=== PATIENT | male | born 1945 | race Caucasian/White ===

== ENCOUNTER 2016-08-29 17:24 | Emergency (ER) | payer MEDICARE ==
--- NOTE | 2016-08-29 18:29 | Emergency Department Record ---
History of Present Illness - General Chief Complaint: Fall Injury Stated Complaint: FALL 1 WEEK AGO/RIB PAIN Time Seen by Provider: 08/29/16 18:06 Source: Patient, RN notes reviewed Mode of Arrival: Ambulatory - History of Present Illness Initial Comments: from a kneeling position one week ago and he still has left rib pain. No dyspnea and no abdo cherrie pain Complaint: Fall Onset/Timin -: Week(s) Fall From: Standing When Fall Occurred: # Days [employer] Fall Witnessed: No Place Fall Occurred: Home Loss of Consciousness: None Prolonged Down Time?: No Symptoms Prior to Fall: None Location: Chest Severity: Moderate Severity scale (1-10): 8 Quality: Sharp, Stabbing - Jennifer Coma Scale Eye Response: (4) Open spontaneously Motor Response: (6) Obeys commands Verbal Response: (5) Oriented Ada Total: 15 - Related Data Home Medications Medication Instructions Recorded Confirmed Last Taken Alpha Lipoic Acid 50 mg PO DAILY 01/08/16 01/08/16 08/29/16 Aspirin, Regular 81 mg PO DAILY 01/08/16 01/08/16 08/29/16 Atorvastatin Calcium [Lipitor] 10 mg PO DAILY 01/08/16 01/08/16 08/29/16 Cholecalciferol (Vitamin D3) 2,000 unit PO DAILY 01/08/16 01/08/16 08/29/16 [Vitamin D3] Losartan Potassium [Cozaar] 25 mg PO DAILY 01/08/16 01/08/16 08/29/16 Metformin HCl [Metformin HCl ER] 1,000 mg PO BID 01/08/16 01/08/16 08/29/16 Ubidecarenone [Co Q-10] 100 mg PO DAILY 01/08/16 01/08/16 08/29/16 Omeprazole [Prilosec] 20 mg PO DAILY 08/29/16 08/29/16 08/29/16 Previous Rx's Medication Instructions Recorded Epinephrine [Epipen] 0.3 mg IM ASDIR PRN #3 syr 01/08/16 Hydrocodone/Acetaminophen [Outing 1 tab PO Q6H PRN #20 tab 08/29/16 5mg/325mg] Allergies Allergy/AdvReac Type Severity Reaction Status Date / Time Penicillins AdvReac RASH Verified 08/29/16 18:04 Travel Screening - Travel/Exposure Within Last 30 Days Have you traveled within the last 30 days?: No - Travel/Exposure Within Last Year Have you traveled outside the [place] in the last year?: No - Additonal Travel Details Have you been exposed to anyone with a communicable illness?: No - Travel Symptoms Symptom Screening: None Review of Systems Reviewed: No additional complaints except as noted below Constitutional: Reports: As per HPI. Denies: Chills, Fever, Malaise, Night sweats, Weakness, Weight change Eyes: Reports: As per HPI. Denies: Eye discharge, Eye pain, Photophobia, Vision change ENT: Reports: As per HPI. Denies: Congestion, Dental pain, Ear pain, Epistaxis , Hearing loss, Throat pain Respiratory: Reports: As per HPI. Denies: Cough, Dyspnea, Hemoptysis, Stridor, Wheezes Cardiovascular: Reports: As per HPI. Denies: Arrhythmia, Chest pain, Dyspnea on exertion, Edema, Murmurs, Orthopnea, Palpitations, Paroxysmal nocturnal dyspnea, Rheumatic Fever, Syncope Endocrine: Reports: As per HPI. Denies: Fatigue, Heat or cold intolerance, Polydipsia, Polyuria Gastrointestinal: Reports: As per HPI. Denies: Abdominal pain, Constipation, Diarrhea, Hematemesis, Hematochezia, Melena, Nausea, Vomiting Genitourinary: Reports: As per HPI. Denies: Dysuria, Frequency, Hematuria, Incontinence, Retention, Testicular pain, Testicular mass, Urgency Musculoskeletal: Reports: As per HPI, Other (rib pain). Denies: Arthralgia, Back pain, Gout, Joint swelling, Myalgia, Neck pain Skin: Reports: As per HPI. Denies: Bruising, Change in color, Change in hair/ nails, Lesions, Pruritus, Rash Neurological: Reports: As per HPI. Denies: Abnormal gait, Confusion, Headache, Numbness, Paresthesias, Seizure, Tingling, Tremors, Vertigo, Weakness Psychiatric: Reports: As per HPI. Denies: Anxiety, Auditory hallucinations, Depression, Homicidal thoughts, Suicidal thoughts, Visual hallucinations Hematological/Lymphatic: Reports: As per HPI. Denies: Anemia, Blood Clots, Easy bleeding, Easy bruising, Swollen glands Past Medical History - SOCIAL HISTORY Smoking Status: Former smoker Alcohol Use: Occassional Drug Use: None - RESPIRATORY Hx Respiratory Disorders: No - CARDIOVASCULAR Hx Cardio Disorders: No - NEURO Hx Neuro Disorders: No - GI Hx GI Disorders: No - Hx Genitourinary Disorders: Yes Hx Prostate Problems: Yes - ENDOCRINE Hx Endocrine Disorders: Yes Hx Diabetes: Yes Hx Thyroid Disease: No - MUSCULOSKELETAL Hx Musculoskeletal Disorders: Yes - PSYCH Hx Psych Problems: No - HEMATOLOGY/ONCOLOGY Hx Hematology/Oncology Disorders: No Family Medical History Any Significant Family History?: Yes Hx Diabetes: Father, Mother, Brother/Sister Hx HTN: Father, Mother, Brother/Sister Hx Stroke: Father Physical Exam - General General Appearance: Alert, Oriented x3, Cooperative, No acute distress - Head Head exam: Normal inspection - Eye Eye exam: Normal appearance, PERRL Pupils: Normal accommodation - ENT ENT exam: Normal exam, Mucous membranes moist, Normal external ear exam, Normal orophraynx, TM's normal bilaterally Ear exam: Normal external inspection. negative: External canal tenderness Nasal Exam: Normal inspection. negative: Discharge, Sinus tenderness Mouth exam: Normal external inspection, Tongue normal Teeth exam: Normal inspection. negative: Dental caries Throat exam: Normal inspection. negative: Tonsillar erythema, Tonsillar exudate - Neck Neck exam: Normal inspection, Full ROM. negative: Tenderness - Respiratory Respiratory exam: Normal lung sounds bilaterally. negative: Respiratory distress - Cardiovascular Cardiovascular Exam: Regular rate, Normal rhythm, Normal heart sounds, Other ( reproducible pain on palpation) - GI/Abdominal GI/Abdominal exam: Soft, Normal bowel sounds. negative: Tenderness - Rectal Rectal exam: Deferred - exam: Deferred - Extremities Extremities exam: Normal inspection, Full ROM, Normal capillary refill. negative: Tenderness - Back Back exam: Reports: Normal inspection, Full ROM. Denies: Muscle spasm, Rash noted, Tenderness - Neurological Neurological exam: Alert, Normal gait, Oriented X3, Reflexes normal - Psychiatric Psychiatric exam: Normal affect, Normal mood - Skin Skin exam: Dry, Intact, Normal color, Warm Course Vital Signs 08/29/16 18:08 Temperature 98.3 F Pulse Rate 87 Respiratory 18 Rate Blood Pressure 144/84 Pulse Ox 95 Disposition Clinical Impression: Fracture of Rib Qualifiers: Encounter type: initial encounter Rib fracture type: single rib Fracture type: closed Laterality: left Qualified Code(s): S22.32XA - Fracture of one rib, left side, initial encounter for closed fracture Disposition: Home, Self-Care Condition: (1) Good Instructions: Rib Fracture (ED) Additional Instructions: follow up with family in 5 days Prescriptions: Hydrocodone/Acetaminophen [Outing 5mg/325mg] 1 tab PO Q6H PRN #20 tab PRN Reason: Pain - General Forms: Patient Portal Access Time of Disposition: 18:32
== END 2016-08-29 18:59 | disposition home or self-care (01) ==
LOC: ER 17:24
DX: S22.32XA Fracture of one rib, left side, initial encounter for closed fracture (principal); W18.30XA Fall on same level, unspecified, initial encounter; Y92.009 Unspecified place in unspecified non-institutional (private) residence as the place of occurrence of the external cause
CPT/HCPCS: 99283

== ENCOUNTER 2017-04-01 09:23 | Observation (INO) | payer MEDICARE ==
--- NOTE | 2017-04-01 09:42 | Emergency Department Record ---
History of Present Illness - General Chief Complaint: Syncope Stated Complaint: SYNCOPE Time Seen by Provider: 04/01/17 09:40 Source: Patient Mode of Arrival: Stretcher Limitations: No limitations - History of Present Illness Initial Comments: 71 yo male presents from the inpatient Endo Clinic after a syncopal episode. The patient was in PreOP waiting for his colonoscopy. He abruptly became nauseated, dizzy, and had a brief LOC per his . The patient was laying down at the time of the event. His accu check was 170. He reports he was in his normal health prior to the colon prep. He reports feeling nauseated, crampy and dizzy during the night. His PCP is Dr Putnam. No history of CAD or stroke. He did have one episode of situational many years ago while witnessing a painful procedure with a friend. MD Complaint: Loss of consciousness Onset/Timin -: Minutes(s) Prodromal Symptoms: Diaphoresis, Lightheaded, Nausea/vomiting, Other Description of Event: Other Injuries Sustained Associated with Event: None Current Symptoms: Nausea Context: At rest Treatments Prior to Arrival: None - [place] Coma Scale Eye Response: (4) Open spontaneously Motor Response: (6) Obeys commands Verbal Response: (5) Oriented Jennifer Total: 15 - Related Data Allergies Allergy/AdvReac Type Severity Reaction Status Date / Time Penicillins AdvReac RASH Verified 08/29/16 18:04 Travel Screening - Travel/Exposure Within Last 30 Days Have you traveled within the last 30 days?: No Review of Systems Constitutional: Reports: Malaise, Weakness. Denies: Chills, Fever Eyes: Denies: Eye discharge, Eye pain, Photophobia, Vision change ENT: Denies: Congestion, Throat pain Respiratory: Denies: Cough, Dyspnea, Hemoptysis, Stridor, Wheezes Cardiovascular: Denies: Chest pain, Palpitations, Syncope Endocrine: Reports: As per HPI, Fatigue. Denies: Polydipsia, Polyuria Gastrointestinal: Reports: As per HPI, Abdominal pain, Diarrhea, Nausea, Vomiting Genitourinary: Denies: Dysuria, Frequency, Hematuria Musculoskeletal: Denies: Arthralgia, Back pain, Joint swelling, Myalgia Skin: Denies: Bruising, Change in color, Rash Neurological: Denies: Confusion, Headache, Numbness, Tingling, Tremors, Vertigo , Weakness Psychiatric: Denies: Anxiety Hematological/Lymphatic: Denies: Blood Clots, Easy bleeding, Easy bruising, Swollen glands Past Medical History - SOCIAL HISTORY Smoking Status: Former smoker - RESPIRATORY Hx Respiratory Disorders: Yes Hx Sleep Apnea: Yes Hx of CPAP: Yes (doesnt use any longer after losing weight) - CARDIOVASCULAR Hx Cardio Disorders: Yes Hx Hypertension: Yes Comment:: high cholesterol - NEURO Hx Neuro Disorders: No - GI Hx GI Disorders: Yes Hx Reflux: Yes - Hx Genitourinary Disorders: Yes Hx Prostate Problems: Yes (BPH) - ENDOCRINE Hx Endocrine Disorders: Yes Hx Diabetes: Yes Hx Thyroid Disease: No - MUSCULOSKELETAL Hx Musculoskeletal Disorders: Yes Hx Arthritis: Yes - PSYCH Hx Psych Problems: Yes Hx Anxiety: Yes - HEMATOLOGY/ONCOLOGY Hx Hematology/Oncology Disorders: Yes Hx Cancer: Yes (basal cell) Family Medical History Any Significant Family History?: Yes Hx Diabetes: Father, Mother, Brother/Sister Hx HTN: Father, Mother, Brother/Sister Hx Stroke: Father Physical Exam - General General Appearance: Alert, Oriented x3, Cooperative, No acute distress, Other ( No distress, mildly pale) Limitations: No limitations - Head Head exam: Atraumatic, Normocephalic, Normal inspection - Eye Eye exam: Normal appearance, PERRL. negative: Conjunctival injection, Scleral icterus - ENT ENT exam: Normal exam, Mucous membranes moist Ear exam: Normal external inspection Nasal Exam: Normal inspection Mouth exam: Normal external inspection Teeth exam: Normal inspection - Neck Neck exam: Normal inspection, Full ROM. negative: Tenderness - Respiratory Respiratory exam: Normal lung sounds bilaterally. negative: Respiratory distress, Rhonchi, Stridor, Wheezes - Cardiovascular Cardiovascular Exam: Regular rate, Normal rhythm, Normal heart sounds Peripheral Pulses: 2+: Radial (R), Radial (L), Dorsalis Pedis (R), Dorsalis Pedis (L) - GI/Abdominal GI/Abdominal exam: Soft. negative: Tenderness - Rectal Rectal exam: Deferred - exam: Deferred - Extremities Extremities exam: Normal inspection, Full ROM, Normal capillary refill. negative: Tenderness - Back Back exam: Reports: Normal inspection, Full ROM. 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 negative: Altered, Motor sensory deficit - Psychiatric Psychiatric exam: Normal affect, Normal mood. negative: Agitated, Anxious - Skin Skin exam: Dry, Intact, Normal color, Warm Course Vital Signs 04/01/17 09:27 Temperature 97.4 F L Pulse Rate 63 Respiratory 18 Rate Blood Pressure 123/73 Pulse Ox 96 - Reevaluation(s) Reevaluation #1: EKG 09:16 NSR rate is 70, intervals normal, PAC, ST no acute changes.axis is L. 04/01/17 09:51 04/01/17 10:14 No acute changes on the CBC The HCT was reviewed. No acute process. Chronic small vessel disease. 04/01/17 10:17 On recheck the patient is doing well without symptoms. 04/01/17 10:19 The CMP and magnesium were reviewed No acute changes The GFR is >60. 04/01/17 10:[address] Putnam. The patient will be admitted for observation for syncope. Medical Decision Making - Lab Data Result diagrams: 04/01/17 09:30 04/01/17 09:30 Disposition Disposition: Admit Clinical Impression: Syncope Qualifiers: Syncope type: unspecified Qualified Code(s): R55 - Syncope and collapse Disposition: Still a Patient at [facility] Decision to Admit: Admit from ER Decision to Admit Date: 04/01/17 Decision to Admit Time: 10:35 Condition: (2) Stable Time of Disposition: 10:35 Quality - Quality Measures Quality Measures: N/A - Blood Pressure Screening Does Patient Have Any of the Following: Active Dx of HTN Blood Pressure Classification: Pre-Hypertensive BP Reading Systolic Measurement: 128 Diastolic Measurement: 74 Screening for High Blood Pressure: Patient Exclusion, Hx of HTN [[id number]] Pre-Hypertensive Follow-up Interventions: Referral to alternative/primary care provider.
[2017-04-01 09:49] LABS: BASO % 0.1 % (0-6); EOS % 1.4 % (0-6); GRAN % 51.3 % (47-80); LYMPH % 35.7 % (16-45); MEAN CORPUSCULAR HEMOGLOBIN 31.4 pg (27-33); MEAN CORPUSCULAR HGB CONC 34.2 g/dl (32-36); MEAN PLATELET VOLUME 8.4 fl (7.4-10.4); MONO % 11.5 % (0-9); PLATELET COUNT 314 K/uL (130-400); RED BLOOD COUNT 4.13 M/uL (4.40-5.70); RED CELL DISTRIBUTION WIDTH 12.9 % (11.5-14.5); WHITE BLOOD COUNT W/O DIFF 8.5 K/uL (4.2-12.2)
[2017-04-01 09:53] LABS: INR 0.97; PARTIAL THROMBOPLASTIN TIME 22.3 SECONDS (24.5-39.1); PROTHROMBIN TIME (PATIENT) 10.5 SECONDS (9.5-12.1)
[2017-04-01 10:04] LABS: ALB/GLOB RATIO 1.4 (1.1-1.8); ALBUMIN 4.1 g/dL (4.0-5.0); ALKALINE PHOSPHATASE 57 U/L (40-129); ALT/SGPT 18 U/L (<41); AST/SGOT 17 U/L (10.0-50.0); BLOOD UREA NITROGEN 8 mg/dL (8-23); CREATININE 0.6 mg/dL (0.7-1.2); EST GLOMERULAR FILTRATION RATE > 60 mL/min; GLUCOSE,RANDOM 174 mg/dL (74-109)
--- NOTE | 2017-04-01 10:18 | CT SCAN REPORT ---
EXAM: HEAD CT WITHOUT CONTRAST HISTORY: SYNCOPE, VERTIGO SINCE YESTERDAY. TECHNIQUE: Contiguous axial images from the cerebral convexities to the foramen magnum were obtained without IV contrast. Comparison: None. Hand dominance: Right. FINDINGS: Mild generalized atrophy of the brain. No acute intracranial hemorrhage, mass effect, or midline shift. No CT evidence of acute infarct. Mild decreased attenuation in the subcortical and periventricular white matter of the cerebral hemispheres. The ventricles, basal cisterns, and sulci are within normal limits. Bilateral lens implants. The osseous structures and paranasal sinuses are unremarkable. IMPRESSION: 1. NO ACUTE INTRACRANIAL PROCESS. 2. MILD CHRONIC SMALL VESSEL ISCHEMIC CHANGE WELL MILD GENERALIZED ATROPHY OF THE BRAIN. JOB NUMBER: [id number] [facility]
[2017-04-01] MEDS ORDERED: 0.9 % SODIUM CHLORIDE 1000ML 1,000 ML IV PRN (11:37)
--- NOTE | 2017-04-01 12:34 | History & Physical ---
History of Present Illness - Date of Service Date of Service for History & Physical: 04/01/17 - History of Present Illness Admitting Diagnosis: Syncope History of Present Illness: Mr Gray is a 71 y/o male who presented after having a witnessed syncopal episode of syncopeand confusion while in pre-op here and [facility]. The patient became dizzy, nauseated, confused and had a momentary loss of consciousness while lying on the bed. The patient did take his bowel prep in preparation for this morning's procedure but reported having cramps, dizziness and nausea throughout the night. On bedside examination in exam room #2 the patient was some what bradycardic in the 50s with rebound in the 60s, ECG showed no acute abnormalities and CBG was 170. The patient has no previous history of stroke, seizures, or cornary artery disease. He was admitted via the ED and labs drawn andCT head w/o contrast showed no acute processes. He is admitted to Medicine for evaluation and workup. Travel Screening - Travel/Exposure Within Last 30 Days Have you traveled within the last 30 days?: No - Travel/Exposure Within Last Year Have you traveled outside the [place] in the last year?: No - Additonal Travel Details Have you been exposed to anyone with a communicable illness?: No - Travel Symptoms Symptom Screening: None Review of Systems Constitutional: Reports: Malaise, Weakness. Denies: Chills, Fever Eyes: Denies: Eye discharge, Eye pain, Photophobia, Vision change ENT: Denies: Congestion, Throat pain Respiratory: Denies: Cough, Dyspnea, Hemoptysis, Stridor, Wheezes Cardiovascular: Denies: Chest pain, Palpitations, Syncope Endocrine: Reports: As per HPI, Fatigue. Denies: Polydipsia, Polyuria Gastrointestinal: Reports: As per HPI, Abdominal pain, Diarrhea, Nausea, Vomiting Genitourinary: Denies: Dysuria, Frequency, Hematuria Musculoskeletal: Denies: Arthralgia, Back pain, Joint swelling, Myalgia Skin: Denies: Bruising, Change in color, Rash Neurological: Denies: Confusion, Headache, Numbness, Tingling, Tremors, Vertigo , Weakness Psychiatric: Denies: Anxiety Hematological/Lymphatic: Denies: Blood Clots, Easy bleeding, Easy bruising, Swollen glands Past Medical History - SOCIAL HISTORY Smoking Status: Former smoker - RESPIRATORY Hx Respiratory Disorders: Yes Hx Sleep Apnea: Yes Hx of CPAP: Yes (doesnt use any longer after losing weight) - CARDIOVASCULAR Hx Cardio Disorders: Yes Hx Hypertension: Yes Comment:: high cholesterol - NEURO Hx Neuro Disorders: No - GI Hx GI Disorders: Yes Hx Reflux: Yes - Hx Genitourinary Disorders: Yes Hx Prostate Problems: Yes (BPH) - ENDOCRINE Hx Endocrine Disorders: Yes Hx Diabetes: Yes Hx Thyroid Disease: No - MUSCULOSKELETAL Hx Musculoskeletal Disorders: Yes Hx Arthritis: Yes - PSYCH Hx Psych Problems: Yes Hx Anxiety: Yes - HEMATOLOGY/ONCOLOGY Hx Hematology/Oncology Disorders: Yes Hx Cancer: Yes (basal cell) Family Medical History Any Significant Family History?: Yes Hx Diabetes: Father, Mother, Brother/Sister Hx HTN: Father, Mother, Brother/Sister Hx Stroke: Father H&P Meds/Allergies - Allergies Allergies: Allergies Allergy/AdvReac Type Severity Reaction Status Date / Time Penicillins AdvReac RASH Verified 08/29/16 18:04 - Active Medications Active Medications: Current Medications Aspirin (Ecotrin (Ec)) 81 mg PO QD [facility] Sodium Chloride () 1,000 mls @ 100 mls/hr IV .Q10H PRN PRN Reason: LARGE VOLUME IV Losartan Potassium (Cozaar) 25 mg PO DAILY [facility] Metformin HCl (Glucophage Ir) 500 mg PO TID [facility] Non-Formulary Medication (Alpha Lipoic Acid [Alpha Lipoic Acid]) 200 mg PO DAILY [facility] Non-Formulary Medication (Atorvastatin Calcium [Lipitor]) 10 mg PO DAILY [facility] Non-Formulary Medication (Fenugreek Seed Extract [Fenugreek]) 500 mg PO DAILY [facility] Non-Formulary Medication (Omeprazole) 20 mg PO DAILY [facility] Physical Exam - Vital Signs Vital Signs: Vital Signs - Last 24 Hrs Temp Pulse Resp BP BP Pulse Ox 04/01/17 11:25 97.9 F 67 18 137/81 100 04/01/17 11:14 128/74 - General General Appearance: Alert, Oriented x3, Cooperative, No acute distress, Other ( No distress, mildly pale) Limitations: No limitations - Head Head exam: Atraumatic, Normocephalic, Normal inspection - Eye Eye exam: Normal appearance, PERRL. negative: Conjunctival injection, Scleral icterus - ENT ENT exam: Normal exam, Mucous membranes moist Ear exam: Normal external inspection Nasal Exam: Normal inspection Mouth exam: Normal external inspection Teeth exam: Normal inspection - Neck Neck exam: Normal inspection, Full ROM. negative: Tenderness - Respiratory Respiratory exam: Normal lung sounds bilaterally. negative: Respiratory distress, Rhonchi, Stridor, Wheezes - Cardiovascular Cardiovascular Exam: Regular rate, Normal rhythm, Normal heart sounds Peripheral Pulses: 2+: Radial (R), Radial (L), Dorsalis Pedis (R), Dorsalis Pedis (L) - GI/Abdominal GI/Abdominal exam: Soft. negative: Tenderness - Rectal Rectal exam: Deferred - exam: Deferred - Extremities Extremities exam: Normal inspection, Full ROM, Normal capillary refill. negative: Tenderness - Back Back exam: Reports: Normal inspection, Full ROM. 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 negative: Altered, Motor sensory deficit - Psychiatric Psychiatric exam: Normal affect, Normal mood. negative: Agitated, Anxious - Skin Skin exam: Dry, Intact, Normal color, Warm Results - Labs Result Diagrams: 04/01/17 09:30 04/01/17 09:30 VTE H&P Assessment - Risk for VTE Risk for VTE: No Risk Level: Very Low Risk Assessment Date: 04/01/17 Risk Assessment Time: 12:35 VTE Orders Placed or Will Be Placed: No VTE Reason for No Prophylaxis: Not Indicated Plan - Detailed Diagnosis and Plan (1) Syncope Plan: - ECG: NSR, cont on telemetry - carotid duplex ordered, 2D echo ordered - cont fluids: Nacl 09% @ 125mL/hr - resume BP medication w/ holding parameters SBP < 120. - fall precautions 04/01/17 12:42 Current Visit: Yes Status: Acute Qualifiers: Syncope type: unspecified Qualified Code(s): R55 - Syncope and collapse Base Code: R55 - SYNCOPE AND COLLAPSE (2) Diabetes type 2, controlled Plan: - CBG 170 pre-op this am. - accuchecks Q12H, diabetic diet - resume Metformin 500mg BID, ASA 81, Atorvastatin 10mg QD Current Visit: Yes Status: Acute Base Code: E11.9 - TYPE 2 DIABETES MELLITUS WITHOUT COMPLICATIONS (3) Hypertension Plan: - BP 137/81 - may resume Losartan 25mg QD Current Visit: Yes Status: Acute Base Code: I10 - ESSENTIAL (PRIMARY) HYPERTENSION (4) Full code status Current Visit: Yes Status: Acute Base Code: Z78.9 - OTHER SPECIFIED HEALTH STATUS - Disposition Pt to have carotid duplex and echo done for syncopal workup. In obs status, d/c in am.
--- NOTE | 2017-04-01 14:41 | US CAROTID DOPPLER REPORT ---
EXAM: BILATERAL CAROTID DOPPLER ULTRASOUND HISTORY: SYNCOPE. TECHNIQUE: Real-time robb scale sonographic imaging of the neck was performed with Duplex Doppler and spectral analysis. Comparison: Head CT 04/01/17. FINDINGS: Robb scale images reveal moderate smooth calcified plaque at the proximal right extracranial internal carotid artery. Moderate to large amount of smooth hard plaque at the left carotid bulb. Spectral analysis demonstrates brisk carotid upstroke bilaterally without parvus tardus morphology. Velocities are as follows: Right CCA PSV: 57 cm/s Right ICA PSV: 63 cm/s Right ICA EDV: 21 cm/s Right ECA PSV: 98 cm/s Right ICA/CCA ratio: 1.1 Left CCA PSV: 65 cm/s Left ICA PSV: 80 cm/s Left ICA EDV: 24 cm/s Left ECA PSV: 96 cm/s Left ICA/CCA ratio: 1.2 Antegrade flow in the vertebral arteries. IMPRESSION: 1. NO HEMODYNAMICALLY SIGNIFICANT STENOSIS IN THE NECK IDENTIFIED. 2. PROMINENT SMOOTH HARD PLAQUE AT THE LEFT CAROTID BULB. 3. MODERATE SMOOTH HARD PLAQUE PROXIMAL RIGHT INTERNAL CAROTID ARTERY. JOB NUMBER: [id number] MTDD
[2017-04-01] MEDS ORDERED: ZINC OXIDE 28.35 GM TUBE TOP PRN (15:51)
[2017-04-01] MEDS: METFORMIN 500 MG TABLET PO SCH ×2 (17:34→22:40)
[2017-04-02] MEDS ORDERED: PANTOPRAZOLE SODIUM 40 MG TABLET PO SCH (07:00)
--- NOTE | 2017-04-02 07:07 | Discharge Summary ---
Providers Discharge Summary Date: 04/02/17 Date of admission: 04/01/17 10:58 Expected Date of Discharge: 04/02/17 Attending physician: Davis Boggs Primary care physician: OJBY PUTNAM Physical Exam - Vital Signs Vital Signs: Vital Signs - Last 24 Hrs Temp Pulse Resp BP BP Pulse Ox 04/01/17 21:00 98.5 F 79 18 118/70 96 04/01/17 20:42 78 16 04/01/17 17:37 97.8 F 76 18 135/68 95 04/01/17 14:31 79 18 04/01/17 13:37 98.2 F 79 18 146/77 98 04/01/17 11:25 97.9 F 67 18 137/81 100 04/01/17 11:14 128/74 - General General Appearance: Alert, Oriented x3, Cooperative, No acute distress Limitations: No limitations - Head Head exam: Atraumatic, Normocephalic, Normal inspection - Eye Eye exam: Normal appearance, PERRL. negative: Conjunctival injection, Scleral icterus - ENT ENT exam: Normal exam, Mucous membranes moist Ear exam: Normal external inspection Nasal Exam: Normal inspection Mouth exam: Normal external inspection Teeth exam: Normal inspection - Neck Neck exam: Normal inspection, Full ROM. negative: Tenderness - Respiratory Respiratory exam: Normal lung sounds bilaterally. negative: Respiratory distress, Rhonchi, Stridor, Wheezes - Cardiovascular Cardiovascular Exam: Regular rate, Normal rhythm, Normal heart sounds Peripheral Pulses: 2+: Radial (R), Radial (L), Dorsalis Pedis (R), Dorsalis Pedis (L) - GI/Abdominal GI/Abdominal exam: Soft. negative: Tenderness - Rectal Rectal exam: Deferred - exam: Deferred - Extremities Extremities exam: Normal inspection, Full ROM, Normal capillary refill. negative: Tenderness - Back Back exam: Reports: Normal inspection, Full ROM. 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 negative: Altered, Motor sensory deficit - Psychiatric Psychiatric exam: Normal affect, Normal mood. negative: Agitated, Anxious - Skin Skin exam: Dry, Intact, Normal color, Warm Hospitalization - Hospitalization Admission Diagnosis: Syncope - Problem List/Discharge Diagnosis (1) Syncope Status: Acute Discharge Diagnosis: Syncope type: unspecified Qualified Code(s): R55 - Syncope and collapse Base Code: R55 - SYNCOPE AND COLLAPSE Comment: 04/02/17- CT head NAP. Carotid dopplers negative for any significant stenosis. Echo completed this morning. serial enzymes negative x3. systolic pressure remains >110 with resuming home medications. -will plan to dc home with outpt follow up. Newly established with Dr. Putnam. will have pk, assurance services manager health care, contact patient to schedule (2) Full code status Status: Acute Base Code: Z78.9 - OTHER SPECIFIED HEALTH STATUS Comment: 12/10- patient is full code - Hospitalization Course Disposition: Home, Self-Care Hospital Course: Mr Gray is a 71 y/o male who presented after having a witnessed syncopal episode of syncopeand confusion while in pre-op here and [facility]. The patient became dizzy, nauseated, confused and had a momentary loss of consciousness while lying on the bed. The patient did take his bowel prep in preparation for this morning's procedure but reported having cramps, dizziness and nausea throughout the night. On bedside examination in exam room #2 the patient was some what bradycardic in the 50s with rebound in the 60s, ECG showed no acute abnormalities and CBG was 170. The patient has no previous history of stroke, seizures, or cornary artery disease. He was admitted via the ED and labs drawn andCT head w/o contrast showed no acute processes. He is admitted to Medicine for evaluation and workup. 04/02/17- Patient feels great today. looking forward to going home. Denies any dizziness, weakness, balance issues. Has been up and ambulating without assistance. Procedures: Cardiology Procedures 04/02/17 11:46 Echocardiogram 2D - Limited ONCE Abnormal Labs: Abnormal Lab Results 04/01/17 Range/Units 17:00 POC Glucose 155 H (70-110) mg/dL Condition at Discharge: (2) Stable Discharge Medications - Discharge Medications Home Medications: Ambulatory Orders Omeprazole [Prilosec] 20 mg PO DAILY 08/29/16 [Last Taken 03/30/17] Alpha Lipoic Acid 200 mg PO DAILY tab 02/13/17 [Last Taken 03/30/17] Aspirin [Aspir 81] 81 mg PO QD tab 02/13/17 [Last Taken 03/30/17] Mupirocin 1 gm TP TID gm 02/13/17 [Last Taken Unknown] Saw [place] Fruit [Saw [place]] 450 mg PO BID cap 02/13/17 [Last Taken ] Tadalafil [Cialis] 5 mg PO QHS tab 02/13/17 [Last Taken Unknown] Tramadol HCl 50 mg PO Q6H PRN tab 02/13/17 [Last Taken Unknown] Cardio Plus 1 tab DAILY 03/04/17 [Last Taken 03/30/17] Ubidecarenone [Coq-10] 100 mg PO DAILY cap 03/04/17 [Last Taken 03/30/17] Discharge Plan - Discharge Instructions Activity at Discharge: Resume Usual Activities As Tolerated Diet at Discharge: Low Fat, Low Cholesterol Instructions: Syncope (DC) Additional Instructions: Please follow up with Dr. Putnam in the [facility]. Pk, our assurance services manager health care, will be contacting you to schedule that appointment. Please call with any questions or concerns Return to ED for new or worsening symptoms Quality Measures - Quality Measures Quality Measures: Advance Directives, Documentation of Current Medications in Medical Record, Elder Maltreatment Screen and Follow-Up Plan, Screening for High Blood Pressure and F/U Documented - Current Medications Quality Measure: Measure #130: Documentation of Current Medications Documentation of Current Medications: <Current Medications Documented/Reviewed> [G8427] - Blood Pressure Screening Quality Measure: Screening for High Blood Pressure and Follow-Up Documented Does Patient Have Any of the Following: Active Dx of HTN Blood Pressure Classification: Pre-Hypertensive BP Reading Systolic Measurement: 128 Diastolic Measurement: 74 Screening for High Blood Pressure: Patient Exclusion, Hx of HTN [G9744] - Advance Directives Quality Measure: Measure #47: Care Plan Advance Directives Established: Yes Advance Directives Information Provided To Patient: No Advance Directives on File: No Living Will: Yes Power of It Telecom Technician: Yes Power of It Telecom Technician Name: JUAN CARLOS GRAY Advance Care Planning: <Care Plan/Decision Maker Documented; Discussed & Documented> [[id number]] - Elder Abuse Suspicion Index Screening: Elder Abuse Suspicion Index Screening Rely on people for bathing, dressing, shopping, banking, etc: No Prevented from getting food, clothes, medication, etc: No Made to feel shamed or threatened by someone: No Forced to sign papers or use money against will: No Feel afraid, touched in ways not wanted or hurt physically: No Poor eye contact, withdrawn, malnourished, cuts or bruises: No Screening Result: Negative result EASI Reference Information: Jyothi ROPER, Niki Bryan, Viky Peoples, Chris Cardenas.Development and validation of a tool to assist physicians identification of elder abuse: The Elder Abuse Suspicion Index (EASI ). Journal of Elder Abuse and Neglect, 2008; 20 (3): 276-300. - Elder Maltreatment Screen Quality Measures: Elder Maltreatment Screen and Follow-Up Plan Elder Maltreatment Screen: <Negative, No Follow-Up Plan Required> [G8734]
[2017-04-02] MEDS: METFORMIN 500 MG TABLET PO SCH ×2 (08:34→10:17)
[2017-04-02] MEDS ORDERED: ATORVASTATIN 20 MG TABLET PO SCH (10:00)
[2017-04-02] MEDS ORDERED: ALPHA LIPOIC ACID 200 MG PO SCH (10:00)
[2017-04-02] MEDS ORDERED: [UNRECOGNIZED DRUG - OTHER] PO SCH (10:00)
[2017-04-02] MEDS ORDERED: LOSARTAN POTASSIUM 25 MG TABLET PO SCH (10:00)
[2017-04-02] MEDS ORDERED: ASPIRIN 81 MG TABEC PO SCH (10:00)
== END 2017-04-02 11:55 | disposition home or self-care (01) ==
LOC: ER 09:23 → MEDSURG 10:58
PROVIDERS: ADMIT Internal Medicine; ATTEND Internal Medicine
DX: R55 Syncope and collapse (principal); R41.0 Disorientation, unspecified; R00.1 Bradycardia, unspecified; I10 Essential (primary) hypertension; E11.9 Type 2 diabetes mellitus without complications; Z79.84 Long term (current) use of oral hypoglycemic drugs
CPT/HCPCS: 99285 ×2; 83735; 85025; 85730; 85610; 80053; 36416; 82948; 84484 ×2; 93880; 70450; 93005 ×2; 93010; G0378 ×2; 99217; 99220; J7030

== ENCOUNTER → 2017-04-01 | Day surgery (SDC) | payer MEDICARE ==
[~2017-04-01] MED LIST: 0.9 % SODIUM CHLORIDE 1,000 ML BAG IV ONE
--- NOTE | 2017-04-01 09:36 | Emergency Department Record ---
History of Present Illness - General Source: Patient, Family Mode of Arrival: Stretcher Limitations: No limitations - History of Present Illness Initial Comments: 71 yo male presents to the ED from the Outpatient Endoscopy PreOp. The patient was scheduled for a routine colonoscopy. He was waiting and developed dizziness , nausea, and sudden LOC per his . She noted that he seemed to grimace, raised his hand shaking and seems to moan. The patient was in the supine position at the time. The patient states he recalls the onset of feeling nauseated, dizzy and weak somewhat abruptly while waiting. He reports he did the full colon prep last night. He did states he felt nauseated, crampy and dizzy most of the night. No history of CAD or stroke. No history of surgery. He past out many years ago one that was clearly situational syncope watching a friend have a painful procedure. PCP Dr Putnam. Complaint: Loss of consciousness -: Minutes(s) Prodromal Symptoms: Nausea/vomiting, Other (dizziness) -: Second(s) Witnessed: Yes - by bystander Injuries Sustained Associated with Event: None Current Symptoms: Nausea, Weakness Context: Other (In preop for a routine colonoscopy) Treatments Prior to Arrival: None - [place] Coma Scale Eye Response: (4) Open spontaneously Motor Response: (6) Obeys commands Verbal Response: (5) Oriented Jennifer Total: 15 - Symptoms of Stroke Symptoms of stroke: Dizziness - Related Data Allergies Allergy/AdvReac Type Severity Reaction Status Date / Time Penicillins AdvReac RASH Verified 08/29/16 18:04 Travel Screening - Travel/Exposure Within Last 30 Days Have you traveled within the last 30 days?: No - Travel/Exposure Within Last Year Have you traveled outside the [place] in the last year?: No - Additonal Travel Details Have you been exposed to anyone with a communicable illness?: No - Travel Symptoms Symptom Screening: None Review of Systems Constitutional: Reports: Weakness. Denies: Chills, Fever Eyes: Denies: Eye discharge, Eye pain, Photophobia, Vision change ENT: Denies: Congestion, Dental pain, Throat pain Respiratory: Denies: Cough, Dyspnea, Hemoptysis, Stridor, Wheezes Cardiovascular: Reports: Syncope. Denies: Chest pain, Dyspnea on exertion, Edema, Palpitations Endocrine: Reports: Fatigue Gastrointestinal: Reports: Nausea. Denies: Abdominal pain, Diarrhea, Vomiting Genitourinary: Denies: Dysuria, Frequency, Hematuria Musculoskeletal: Denies: Arthralgia, Back pain, Joint swelling, Myalgia Skin: Denies: Bruising, Change in color, Rash Neurological: Denies: Confusion, Headache, Numbness, Tingling, Tremors, Vertigo , Weakness Psychiatric: Denies: Anxiety Hematological/Lymphatic: Denies: Blood Clots, Easy bleeding, Easy bruising, Swollen glands Past Medical History - SOCIAL HISTORY Smoking Status: Former smoker Alcohol Use: None - RESPIRATORY Hx Respiratory Disorders: Yes Hx Sleep Apnea: Yes Hx of CPAP: Yes (doesnt use any longer after losing weight) - CARDIOVASCULAR Hx Cardio Disorders: Yes Hx Hypertension: Yes Comment:: high cholesterol - NEURO Hx Neuro Disorders: No - GI Hx GI Disorders: Yes Hx Reflux: Yes - Hx Genitourinary Disorders: Yes Hx Prostate Problems: Yes (BPH) - ENDOCRINE Hx Endocrine Disorders: Yes Hx Diabetes: Yes Hx Thyroid Disease: No - MUSCULOSKELETAL Hx Musculoskeletal Disorders: Yes Hx Arthritis: Yes - PSYCH Hx Psych Problems: Yes Hx Anxiety: Yes - HEMATOLOGY/ONCOLOGY Hx Hematology/Oncology Disorders: Yes Hx Cancer: Yes (basal cell) Family Medical History Any Significant Family History?: Yes Hx Diabetes: Father, Mother, Brother/Sister Hx HTN: Father, Mother, Brother/Sister Hx Stroke: Father Physical Exam - General General Appearance: Alert, Oriented x3, Cooperative Limitations: No limitations - Head Head exam: Atraumatic, Normal inspection Head exam detail: negative: Abrasion, Contusion, Hematoma - Eye Eye exam: Normal appearance, PERRL, EOMI. negative: Conjunctival injection, Nystagmus, Periorbital swelling, Scleral icterus - ENT ENT exam: Normal exam, Mucous membranes moist Ear exam: Normal external inspection Nasal Exam: Normal inspection Mouth exam: Normal external inspection - Neck Neck exam: Normal inspection - Respiratory Respiratory exam: Normal lung sounds bilaterally. negative: Accessory muscle use, Respiratory distress, Rhonchi, Stridor, Wheezes - Cardiovascular Cardiovascular Exam: Regular rate, Normal rhythm, Normal heart sounds Peripheral Pulses: 2+: Radial (R), Radial (L), Dorsalis Pedis (R), Dorsalis Pedis (L) - GI/Abdominal GI/Abdominal exam: Soft. negative: Tenderness - Rectal Rectal exam: Deferred - exam: Deferred - Extremities Extremities exam: Normal inspection, Full ROM, Normal capillary refill. negative: Tenderness - Back Back exam: Reports: Normal inspection, Full ROM. Denies: CVA tenderness (R), CVA tenderness (L), Muscle spasm, Rash noted, Tenderness - Neurological Neurological exam: Alert, CN II-XII intact, Normal gait, Oriented X3, Reflexes normal. negative: Altered, Motor sensory deficit - Psychiatric Psychiatric exam: Normal affect, Normal mood - Skin Skin exam: Dry, Intact, Normal color, Warm Course - Reevaluation(s) Reevaluation #1: The patient was seen on the floor as he was an overheard "Code" The patient was found pale, alert but slow to respond. He was A and O x's 3 on my arrival. EKG was preformed in Endo and the patient was brought to the ED. The accucheck in Endo was 170. EKG 09:16 NSR with PAC, rate is 70, intervals normal, axis left, ST no acute changes 04/01/17 09:38 Disposition Clinical Impression: Syncope Qualifiers: Syncope type: unspecified Qualified Code(s): R55 - Syncope and collapse
== END | disposition home or self-care (01) ==
LOC: HOP 08:33
PROVIDERS: ATTEND Internal Medicine Gastroenterology
DX: Z53.8 Procedure and treatment not carried out for other reasons (principal)
CPT/HCPCS: J7030

== ENCOUNTER 2019-01-07 06:31 | Day surgery (SDC) | payer MEDICARE ==
[2019-01-07] MEDS ORDERED: LIDOCAINE 2% MDV (20MG/ML) 20ML VIAL IV ONE (06:32)
[2019-01-07] MEDS ORDERED: PROPOFOL 10 MG/ML VIAL IV ONE (06:32)
[2019-01-07] MEDS ORDERED: FENTANYL PF 100MCG/2ML VIAL IV ONE (06:32)
[2019-01-07] MEDS ORDERED: MIDAZOLAM HCL 2MG/2ML VIAL IV ONE (06:32)
[2019-01-07] MEDS ORDERED: RINGERS SOLUTION,LACTATED 1,000 ML IV ONE (07:00)
[2019-01-07] MEDS ORDERED: BUPIVACAINE 0.5% (5MG/ML) PF 30ML VIAL IT ONE (08:20)
[2019-01-07] MEDS ORDERED: LIDOCAINE 1% W/EPI 1:200,000 MPF 30ML SQ ONE (08:20)
[2019-01-07] MEDS ORDERED: BUPIVACAINE 0.5% W/EPI MPF 30 ML VIAL SQ ONE (08:20)
[2019-01-07] MEDS ORDERED: DEXAMETHASONE PRESERVATIVE FREE 10MG/ML VIAL SQ ONE (08:20)
--- NOTE | 2019-01-09 09:51 | Operative Note ---
DATE OF SURGERY: 01/07/2019 PREOPERATIVE DIAGNOSIS: Lumbar spondylosis without myelopathy, ICD10 code M47.816. OPERATION: Fluoroscopic-guided infiltration of block bilateral lumbar facets 3- 4, 4-5, 5-1. INDICATION: This patient presents with primary back pain. Examination shows tenderness of the lumbar spine. Range of motion does cause pain in the back with extension. Diagnostic studies show diffuse multilevel spondylosis. PROCEDURE: Intravenous line, vital sign monitoring, IV sedation, prepped and draped in sterile technique. Under imaging, facet levels lumbar spine in the area of pain were identified and marked, 3-4, 4-5, 5-1 bilateral. Each one of these points on the skin infiltrated. A 22-gauge 3-1/2 inch needle into the facet with 1 mL of 0.5% Marcaine and dexamethasone injected. This was repeated bilaterally. Areas cleaned. Topical antibiotic and sterile dressing applied. Will monitor and evaluate. MTDD
== END 2019-01-07 08:50 | disposition home or self-care (01) ==
LOC: SUR 06:31
PROVIDERS: ATTEND Pain Medicine Interventional Pain Medicine
DX: M47.816 Spondylosis without myelopathy or radiculopathy, lumbar region (principal); I10 Essential (primary) hypertension; E11.9 Type 2 diabetes mellitus without complications; E78.00 Pure hypercholesterolemia, unspecified; K21.9 Gastro-esophageal reflux disease without esophagitis; G47.33 Obstructive sleep apnea (adult) (pediatric)
CPT/HCPCS: 64493; 64494; 64495; 01992; 36416; 82948; J1100; J3010; J7120

== ENCOUNTER 2019-01-11 12:05 | Observation (INO) | payer MEDICARE ==
--- NOTE | 2019-01-11 12:20 | Emergency Department Record ---
History of Present Illness - General Chief complaint: Weakness Stated complaint: DIZZINESS Time Seen by Provider: 01/11/19 12:12 Source: Patient, EMS Mode of Arrival: Ambulatory Limitations: No limitations - History of Present Illness Initial comments: 73 yo male presents after an episode of getting weak, dizzy, very sweaty all over. The onset was 11:40am. No headache. No syncope. No focal weakness. He did fell like his legs were weak during the episode. The symptoms resolved after about 20 minutes. No palpitations. No vomiting. No confusion. No chest pain. No back or abdominal pain. No pain in the legs. No numbness to the legs. No recent illness. Saturday he had spinal injections that when well without difficulty. He is now completely asymptomatic MD Complaint: Generalized weakness -: Minutes(s) (20) Severity: Severe Quality: Other Consistency: Now resolved Improves with: None Worsens with: Exertion (On set while walking) Context: Other Associated Symptoms: Diaphoresis - Jennifer Coma Scale Eye Response: (4) Open spontaneously Motor Response: (6) Obeys commands Verbal Response: (5) Oriented [place] Total: 15 - Related Data Home Medications Medication Instructions Recorded Confirmed Last Taken Aspirin [Aspir-Low] 81 mg PO DAILY 01/11/19 01/11/19 01/11/19 Cholecalciferol (Vitamin D3) 5,000 unit PO DAILY 01/11/19 01/11/19 01/11/19 [Vitamin D3] Magnesium 200 mg PO DAILY 01/11/19 01/11/19 01/11/19 Allergies Allergy/AdvReac Type Severity Reaction Status Date / Time bee venom protein (honey bee) Allergy SWELLING Verified 01/11/19 12:25 (GENERAL) cat dander Allergy ITCHING Unverified 12/03/18 11:07 Penicillins AdvReac RASH Unverified 10/22/18 15:12 Review of Systems Constitutional: Denies: Chills, Fever, Malaise, Weakness Eyes: Denies: Eye discharge, Photophobia, Vision change ENT: Denies: Congestion, Throat pain Respiratory: Denies: Cough, Dyspnea Cardiovascular: Denies: Arrhythmia, Chest pain, Dyspnea on exertion, Edema, P alpitations, Paroxysmal nocturnal dyspnea, Syncope Endocrine: Denies: Fatigue Gastrointestinal: Denies: Abdominal pain, Diarrhea, Nausea, Vomiting Genitourinary: Denies: Dysuria, Frequency, Hematuria Musculoskeletal: Denies: Arthralgia, Back pain, Joint swelling, Myalgia Skin: Reports: Other (diaphoresis). Denies: Bruising, Change in color, Rash Neurological: Reports: Weakness. Denies: Confusion, Headache, Numbness, Tremors Psychiatric: Denies: Anxiety Hematological/Lymphatic: Denies: Easy bleeding, Easy bruising Past Medical History - SOCIAL HISTORY Smoking Status: Former smoker Alcohol Use Comment: red wine - RESPIRATORY Hx of CPAP: Yes (doesnt use any longer after losing weight) - CARDIOVASCULAR Hx Hypertension: Yes - NEURO Hx Neuro Disorders: No - GI Hx Reflux: Yes - Hx Genitourinary Disorders: Yes Hx Prostate Problems: Yes (BPH) - ENDOCRINE Hx Diabetes: Yes - MUSCULOSKELETAL Hx Musculoskeletal Disorders: Yes Hx Arthritis: Yes - PSYCH Hx Psych Problems: Yes Hx Anxiety: Yes - HEMATOLOGY/ONCOLOGY Hx Hematology/Oncology Disorders: Yes Hx Cancer: Yes (basal cell) Family Medical History Hx Diabetes: Father, Mother, Brother/Sister Hx HTN: Father, Mother, Brother/Sister Hx Stroke: Father Physical Exam - General General Appearance: Alert, Oriented x3, Cooperative, No acute distress Limitations: No limitations - Head Head exam: Atraumatic, Normal inspection - Eye Eye exam: Normal appearance, PERRL. negative: Conjunctival injection, Scleral icterus - ENT ENT exam: Normal exam, Mucous membranes moist Ear exam: Normal external inspection Nasal Exam: Normal inspection Mouth exam: Normal external inspection - Neck Neck exam: Normal inspection - Respiratory Respiratory exam: Normal lung sounds bilaterally. negative: Respiratory distress, Rhonchi, Stridor, Wheezes - Cardiovascular Cardiovascular Exam: Regular rate, Normal rhythm, Normal heart sounds Peripheral Pulses: 2+: Radial (R), Radial (L) - GI/Abdominal GI/Abdominal exam: Soft. negative: Tenderness - Rectal Rectal exam: Deferred - exam: Deferred - Extremities Extremities exam: Normal inspection. negative: Pedal edema, Tenderness - Back Back exam: Reports: Normal inspection, Full ROM. Denies: CVA tenderness (R), CVA tenderness (L) - Neurological Neurological exam: Alert, CN II-XII intact, Normal gait, Oriented X3, Reflexes normal. negative: Altered, Motor sensory deficit - Psychiatric Psychiatric exam: Normal affect, Normal mood. negative: Agitated, Anxious - Skin Skin exam: Dry, Intact, Normal color, Warm Course - Reevaluation(s) Reevaluation #1: 01/11/19 12:22 EKG #1: 12:04 Rate: 82 Rhythm: sinus Recluse: normal Intervals: normal ST segments: normal Prior: 03/2017 no changes 01/11/19 12:23 01/11/19 13:11 The labs results were reviewed There are no acute significant abnormalities of the CBC CMP with K of 5.2 01/11/19 13:27 The HCT is negative for acute process. 01/11/19 Plan to admit for observation [place] Medical Decision Making - Lab Data Result diagrams: 01/11/19 12:00 01/11/19 12:00 Disposition Disposition: Admit Clinical Impression: Near syncope Disposition: Home, Self-Care Decision to Admit: Admit from ER Decision to Admit Date: 01/11/19 Decision to Admit Time: 13:15 Condition: (2) Stable Time of Disposition: 13:15 Quality - Quality Measures Quality Measures: N/A - Blood Pressure Screening Does Patient Have Any of the Following: No Blood Pressure Classification: Normal BP Reading Systolic Measurement: 106 Diastolic Measurement: 76 Screening for High Blood Pressure: < Normal BP, F/U Not Required > [G8783]
[2019-01-11 12:28] LABS: ABSOLUTE NEUTROPHIL COUNT 5.48; BASO % 0.2 % (0-6); EOS % 1.3 % (0-6); GRAN % 52.3 % (47-80); HEMATOCRIT 42.1 % (42.0-52.0); HEMOGLOBIN 14.1 gm/dl (14.0-18.0); LYMPH % 35.4 % (16-45); MEAN CELL VOLUME 92.9 fl (81-97); MEAN CORPUSCULAR HEMOGLOBIN 31.1 pg (27-33); MEAN CORPUSCULAR HGB CONC 33.5 g/dl (32-36); MEAN PLATELET VOLUME 8.7 fl (7.4-10.4); MONO % 10.8 % (0-9); PLATELET COUNT 399 K/uL (130-400); RED BLOOD COUNT 4.53 M/uL (4.40-5.70); RED CELL DISTRIBUTION WIDTH 13.4 % (11.5-14.5); WHITE BLOOD COUNT W/O DIFF 10.5 K/uL (4.2-12.2)
[2019-01-11 12:41] LABS: BLOOD UREA NITROGEN 19 mg/dL (8-23); PARTIAL THROMBOPLASTIN TIME 22.8 SECONDS (24.5-39.1); PROTHROMBIN TIME (PATIENT) 10.2 SECONDS (9.5-12.1)
[2019-01-11 12:42] LABS: CREATININE 0.9 mg/dL (0.7-1.2); EST GLOMERULAR FILTRATION RATE > 60 mL/min; TOTAL PROTEIN 7.7 g/dL (6.6-8.7)
[2019-01-11 12:44] LABS: GLUCOSE,RANDOM 139 mg/dL (74-109)
[2019-01-11 12:47] LABS: ALB/GLOB RATIO 1.7 (1.1-1.8); ALBUMIN 4.8 g/dL (4.0-5.0); ALKALINE PHOSPHATASE 54 U/L (40-129); ALT/SGPT 24 U/L (<41); AST/SGOT 20 U/L (10.0-50.0)
[2019-01-11] MEDS ORDERED: 0.9 % SODIUM CHLORIDE 1000ML 1,000 ML IV PRN (15:52)
[2019-01-11] MEDS: 0.9 % SODIUM CHLORIDE 1000ML 1,000 ML IV PRN (17:16)
[2019-01-11] MEDS ORDERED: METFORMIN 500 MG TABLET PO SCH (22:00)
[2019-01-11] MEDS ORDERED: ATORVASTATIN 20 MG TABLET PO SCH (22:00)
[2019-01-11] MEDS ORDERED: DULOXETINE HCL 30 MG CAPSULE.DR PO SCH (22:00)
[2019-01-12] MEDS: 0.9 % SODIUM CHLORIDE 1000ML 1,000 ML IV PRN (03:16)
[2019-01-12 06:48] LABS: ALB/GLOB RATIO 1.8 (1.1-1.8); ALBUMIN 3.9 g/dL (4.0-5.0); ALKALINE PHOSPHATASE 41 U/L (40-129); ALT/SGPT 18 U/L (<41); AST/SGOT 12 U/L (10.0-50.0); BLOOD UREA NITROGEN 14 mg/dL (8-23); CREATININE 0.8 mg/dL (0.7-1.2); EST GLOMERULAR FILTRATION RATE > 60 mL/min; GLUCOSE,RANDOM 143 mg/dL (74-109); TOTAL PROTEIN 6.1 g/dL (6.6-8.7)
[2019-01-12] MEDS ORDERED: PANTOPRAZOLE SODIUM 40 MG TABLET PO SCH (07:00)
--- NOTE | 2019-01-12 07:23 | CT SCAN REPORT ---
EXAM: CT SCAN OF THE HEAD HISTORY: PATIENT HAS A HISTORY OF SUDDEN ONSET OF LEG WEAKNESS. TECHNIQUE: Serial axial CT scan of the head was performed at 2.5 mm intervals from the base of the skull to the apex without the use of intravenous contrast. Sagittal and coronal reconstructions are provided. Comparison: CT scan of the head dated 04/01/17 is provided. FINDINGS: Moderate generalized parenchymal volume loss is noted. There is no CT evidence of a mass or mass effect. Moderate periventricular and subcortical white matter chronic small vessel ischemic changes are again identified. There is no CT evidence of intra or extraaxial fluid collection to suggest bleeding. Bone windows demonstrate no CT evidence of a fracture or dislocation of the skull. The bilateral paranasal sinuses are unremarkable. IMPRESSION: STABLE CT APPEARANCE OF THE BRAIN WITH RESPECT TO THE PRIOR EXAMINATION. JOB NUMBER: [id number] [facility]
[2019-01-12] MEDS ORDERED: METFORMIN 500 MG TABLET PO SCH (09:00)
--- NOTE | 2019-01-12 09:11 | History & Physical ---
History of Present Illness - Date of Service Date of Service for History & Physical: 01/12/19 - History of Present Illness Admitting Diagnosis: Near Syncope Travel Screening - Travel/Exposure Within Last 30 Days Have you traveled within the last 30 days?: No - Travel/Exposure Within Last Year Have you traveled outside the [place] in the last year?: No - Additonal Travel Details Have you been exposed to anyone with a communicable illness?: No - Travel Symptoms Symptom Screening: None Review of Systems Constitutional: Denies: Chills, Fever, Malaise, Weakness Eyes: Denies: Eye discharge, Photophobia, Vision change ENT: Denies: Congestion, Throat pain Respiratory: Denies: Cough, Dyspnea Cardiovascular: Denies: Arrhythmia, Chest pain, Dyspnea on exertion, Edema, Palpitations, Paroxysmal nocturnal dyspnea, Syncope Endocrine: Denies: Fatigue Gastrointestinal: Denies: Abdominal pain, Diarrhea, Nausea, Vomiting Genitourinary: Denies: Dysuria, Frequency, Hematuria Musculoskeletal: Denies: Arthralgia, Back pain, Joint swelling, Myalgia Skin: Reports: Other (diaphoresis). Denies: Bruising, Change in color, Rash Neurological: Reports: Weakness. Denies: Confusion, Headache, Numbness, Tremors Psychiatric: Denies: Anxiety Hematological/Lymphatic: Denies: Easy bleeding, Easy bruising Past Medical History - SOCIAL HISTORY Smoking Status: Former smoker Alcohol Use Comment: red wine - RESPIRATORY Hx of CPAP: Yes (doesnt use any longer after losing weight) - CARDIOVASCULAR Hx Hypertension: Yes - NEURO Hx Neuro Disorders: No - GI Hx Reflux: Yes - Hx Genitourinary Disorders: Yes Hx Prostate Problems: Yes (BPH) - ENDOCRINE Hx Diabetes: Yes - MUSCULOSKELETAL Hx Musculoskeletal Disorders: Yes Hx Arthritis: Yes - PSYCH Hx Psych Problems: Yes Hx Anxiety: Yes - HEMATOLOGY/ONCOLOGY Hx Hematology/Oncology Disorders: Yes Hx Cancer: Yes (basal cell) Family Medical History Hx Diabetes: Father, Mother, Brother/Sister Hx HTN: Father, Mother, Brother/Sister Hx Stroke: Father H&P Meds/Allergies - Allergies Allergies: Allergies Allergy/AdvReac Type Severity Reaction Status Date / Time bee venom protein (honey bee) Allergy SWELLING Verified 01/11/19 12:25 (GENERAL) cat dander Allergy ITCHING Unverified 12/03/18 11:07 Penicillins AdvReac RASH Unverified 10/22/18 15:12 leaf mold AdvReac SWELLING Uncoded 01/12/19 07:35 OF THE FACE - Home Medications Home Medications Medication Instructions Recorded Confirmed Last Taken Aspirin [Aspir-Low] 81 mg PO DAILY 01/11/19 01/11/19 01/11/19 Cholecalciferol (Vitamin D3) 5,000 unit PO DAILY 01/11/19 01/11/19 01/11/19 [Vitamin D3] Magnesium 200 mg PO DAILY 01/11/19 01/11/19 01/11/19 Duloxetine HCl 30 mg PO QHS 01/12/19 01/12/19 Unknown Metformin HCl 1,000 mg PO BIDWM 01/12/19 01/12/19 Unknown - Active Medications Active Medications: Current Medications Aspirin (Ecotrin (Ec)) 81 mg PO DAILY [facility] Atorvastatin Calcium (Lipitor) 10 mg PO QHS [facility] Last Admin: 01/11/19 21:39 Dose: Not Given Documented by: Duloxetine HCl (Cymbalta) 30 mg PO QHS [facility] Last Admin: 01/11/19 21:38 Dose: 30 mg Documented by: Sodium Chloride () 1,000 mls @ 100 mls/hr IV .Q10H PRN PRN Reason: LARGE VOLUME IV Last Admin: 01/12/19 03:16 Dose: 100 mls/hr Documented by: Losartan Potassium (Cozaar) 25 mg PO DAILY [facility] Magnesium Oxide (Mag Ox) 200 mg PO DAILY [facility] Metformin HCl (Glucophage Ir) 1,000 mg PO BIDWM [facility] Pantoprazole Sodium (Protonix) 40 mg PO DAILYAC [facility] Last Admin: 01/12/19 06:23 Dose: 40 mg Documented by: Vitamin D (Vitamin D3) 5,000 unit PO DAILY [facility] Physical Exam - Vital Signs Vital Signs: Vital Signs - Last 24 Hrs Temp Pulse Pulse Resp BP BP BP 01/12/19 08:00 97.3 F L 73 15 134/76 01/11/19 16:00 97.5 F L 90 16 124/60 01/11/19 13:12 97.7 F 82 16 129/72 01/11/19 12:09 79 16 106/76 Pulse Ox 01/12/19 08:00 98 01/11/19 16:00 96 01/11/19 13:12 96 08/18/19 12:09 95 - General General Appearance: Alert, Oriented x3, Cooperative, No acute distress Limitations: No limitations - Head Head exam: Atraumatic, Normal inspection - Eye Eye exam: Normal appearance, PERRL. negative: Conjunctival injection, Scleral icterus - ENT ENT exam: Normal exam, Mucous membranes moist Ear exam: Normal external inspection Nasal Exam: Normal inspection Mouth exam: Normal external inspection - Neck Neck exam: Normal inspection - Respiratory Respiratory exam: Normal lung sounds bilaterally. negative: Respiratory distress, Rhonchi, Stridor, Wheezes - Cardiovascular Cardiovascular Exam: Regular rate, Normal rhythm, Normal heart sounds Peripheral Pulses: 2+: Radial (R), Radial (L) - GI/Abdominal GI/Abdominal exam: Soft. negative: Tenderness - Rectal Rectal exam: Deferred - exam: Deferred - Extremities Extremities exam: Normal inspection. negative: Pedal edema, Tenderness - Back Back exam: Reports: Normal inspection, Full ROM. Denies: CVA tenderness (R), CVA tenderness (L) - Neurological Neurological exam: Alert, CN II-XII intact, Normal gait, Oriented X3, Reflexes normal. negative: Altered, Motor sensory deficit - Psychiatric Psychiatric exam: Normal affect, Normal mood. negative: Agitated, Anxious - Skin Skin exam: Dry, Intact, Normal color, Warm Results - Labs Result Diagrams: 01/11/19 12:00 01/12/19 06:18 Labs Last 24 Hours: Laboratory Results - last 24 hr 01/11/19 01/11/19 01/11/19 12:00 12:00 12:00 WBC 10.5 RBC 4.53 Hgb 14.1 Hct 42.1 MCV 92.9 MCH 31.1 MCHC 33.5 RDW 13.4 Plt Count 399 MPV 8.7 Gran % 52.3 Lymphocytes % 35.4 Monocytes % 10.8 H Eosinophils % 1.3 Basophils % 0.2 Absolute Neutrophils 5.48 PT 10.2 INR 1.0 APTT 22.8 L Sodium 133 L Potassium 5.2 H Chloride 96 L Carbon Dioxide 24.0 Anion Gap 13.0 BUN 19 Creatinine 0.9 Estimated GFR > 60 Random Glucose 139 H Calcium 10.6 H Total Bilirubin 0.20 AST 20 ALT 24 Alkaline Phosphatase 54 Troponin T < 0.010 Total Protein 7.7 Albumin 4.8 Globulin 2.9 Albumin/Globulin Ratio 1.7 01/11/19 01/12/19 01/12/19 21:55 06:00 06:18 WBC RBC Hgb Hct MCV MCH MCHC RDW Plt Count MPV Gran % Lymphocytes % Monocytes % Eosinophils % Basophils % Absolute Neutrophils PT INR APTT Sodium Cancelled 137 Potassium Cancelled 4.6 H Chloride Cancelled 100 Carbon Dioxide Cancelled 28.0 Anion Gap Cancelled 9.0 BUN Cancelled 14 Creatinine Cancelled 0.8 Estimated GFR Cancelled > 60 Random Glucose Cancelled 143 H Calcium Cancelled 9.2 Total Bilirubin Cancelled 0.30 AST Cancelled 12 ALT Cancelled 18 Alkaline Phosphatase Cancelled 41 Troponin T < 0.010 < 0.010 Total Protein Cancelled 6.1 L Albumin Cancelled 3.9 L Globulin Cancelled 2.2 Albumin/Globulin Ratio Cancelled 1.8
--- NOTE | 2019-01-12 09:54 | Discharge Summary ---
Providers Discharge Summary Date: 01/12/19 Date of admission: 01/11/19 14:16 Attending physician: JOBY PUTNAM Primary care physician: JOBY PUTNAM Physical Exam - Vital Signs Vital Signs: Vital Signs - Last 24 Hrs Temp Pulse Pulse Resp BP BP BP 01/12/19 08:00 97.3 F L 73 15 134/76 01/11/19 16:00 97.5 F L 90 16 124/60 01/11/19 13:12 97.7 F 82 16 129/72 01/11/19 12:09 79 16 106/76 Pulse Ox 01/12/19 08:00 98 01/11/19 16:00 96 01/11/19 13:12 96 01/11/19 12:09 95 - General General Appearance: Alert, Oriented x3, Cooperative, No acute distress Limitations: No limitations - Head Head exam: Atraumatic, Normal inspection - Eye Eye exam: Normal appearance, PERRL. negative: Conjunctival injection, Scleral icterus - ENT ENT exam: Normal exam, Mucous membranes moist Ear exam: Normal external inspection Nasal Exam: Normal inspection Mouth exam: Normal external inspection - Neck Neck exam: Normal inspection - Respiratory Respiratory exam: Normal lung sounds bilaterally. negative: Respiratory distress, Rhonchi, Stridor, Wheezes - Cardiovascular Cardiovascular Exam: Regular rate, Normal rhythm, Normal heart sounds Peripheral Pulses: 2+: Radial (R), Radial (L) - GI/Abdominal GI/Abdominal exam: Soft. negative: Tenderness - Rectal Rectal exam: Deferred - exam: Deferred - Extremities Extremities exam: Normal inspection. negative: Pedal edema, Tenderness - Back Back exam: Reports: Normal inspection, Full ROM. Denies: CVA tenderness (R), CVA tenderness (L) - Neurological Neurological exam: Alert, CN II-XII intact, Normal gait, Oriented X3, Reflexes normal. negative: Altered, Motor sensory deficit - Psychiatric Psychiatric exam: Normal affect, Normal mood. negative: Agitated, Anxious - Skin Skin exam: Dry, Intact, Normal color, Warm Hospitalization - Hospitalization Admission Diagnosis: Near Syncope - Hospitalization Course Procedures: Imaging and X-Rays 01/11/19 12:13 HEAD WO CONTRAST [CT] Stat Cardiology Procedures 01/11/19 12:12 Circular Knife Machine Cutter NOW EKG NOW 01/11/19 15:52 Circular Knife Machine Cutter .Continuous EKG QDX2@0600 Abnormal Labs: Abnormal Lab Results 01/11/19 01/11/19 01/11/19 Range/Units 12:00 12:00 12:00 Monocytes % 10.8 H (0-9) % APTT 22.8 L (24.5-39.1) SECONDS Sodium 133 L (136-145) mmol/L Potassium 5.2 H (3.4-4.5) mmol/L Chloride 96 L (98-107) mmol/L Random Glucose 139 H (74-109) mg/dL Calcium 10.6 H (8.8-10.2) mg/dL Total Protein (6.6-8.7) g/dL Albumin (4.0-5.0) g/dL 01/12/19 Range/Units 06:18 Monocytes % (0-9) % APTT (24.5-39.1) SECONDS Sodium (136-145) mmol/L Potassium 4.6 H (3.4-4.5) mmol/L Chloride (98-107) mmol/L Random Glucose 143 H (74-109) mg/dL Calcium (8.8-10.2) mg/dL Total Protein 6.1 L (6.6-8.7) g/dL Albumin 3.9 L (4.0-5.0) g/dL Condition at Discharge: (2) Stable Discharge Medications - Discharge Medications Home Medications: Ambulatory Orders Alpha Lipoic Acid 200 mg PO DAILY tab 02/13/17 [Last Taken 01/11/19] Cardio Plus 1 tab DAILY 03/04/17 [Last Taken 01/11/19] Ubidecarenone [Coq-10] 100 mg PO DAILY cap 03/04/17 [Last Taken 01/10/19] Acetaminophen [Tylenol Extra Strength] 1,000 mg PO Q6H PRN tab 12/03/18 [Last Taken 01/11/19] Aspirin [Aspir-Low] 81 mg PO DAILY 01/11/19 [Last Taken 01/11/19] Cholecalciferol (Vitamin D3) [Vitamin D3] 5,000 unit PO DAILY 01/11/19 [Last Taken 01/11/19] Magnesium 200 mg PO DAILY 01/11/19 [Last Taken 01/11/19] Duloxetine HCl 30 mg PO QHS 01/12/19 [Last Taken Unknown] Metformin HCl 1,000 mg PO BIDWM 01/12/19 [Last Taken Unknown] Discharge Plan - Discharge Instructions Activity at Discharge: Increase Activity as Tolerated Diet at Discharge: Regular Diet Additional Instructions: Follow up with Dr. Putnam in 1-2 weeks Take Omeprazole 30 minutes prior to breakfast Quality Measures - Quality Measures Quality Measures: Advance Directives, Documentation of Current Medications in Medical Record, Elder Maltreatment Screen and Follow-Up Plan, Screening for High Blood Pressure and F/U Documented - Current Medications Quality Measure: Measure #130: Documentation of Current Medications - Blood Pressure Screening Quality Measure: Screening for High Blood Pressure and Follow-Up Documented Blood Pressure Classification: Normal BP Reading Systolic Measurement: 106 Diastolic Measurement: 76 Screening for High Blood Pressure: < Normal BP, F/U Not Required > [G8783] - Advance Directives Quality Measure: Measure #47: Care Plan Advance Directives Established: Yes Advance Directives Information Provided To Patient: No Advance Directives on File: Yes (2004) Living Will: Yes Power of Drug And Alcohol Counselor: Yes Power of Drug And Alcohol Counselor Name: JUAN CARLOS NAIR - Elder Abuse Suspicion Index Screening: Elder Abuse Suspicion Index Screening Rely on people for bathing, dressing, shopping, banking, etc: No Prevented from getting food, clothes, medication, etc: No Made to feel shamed or threatened by someone: No Forced to sign papers or use money against will: No Feel afraid, touched in ways not wanted or hurt physically: No Poor eye contact, withdrawn, malnourished, cuts or bruises: No Screening Result: Negative result EASI Reference Information: Jyothi ROPER, Niki C, Viky D, Chris Cardenas.Development and validation of a tool to assist physicians identification of elder abuse: The Elder Abuse Suspicion Index (EASI ). Journal of Elder Abuse and Neglect, 2008; 20 (3): 276-300. - Elder Maltreatment Screen Quality Measures: Elder Maltreatment Screen and Follow-Up Plan Elder Maltreatment Screen: <Negative, No Follow-Up Plan Required> [G8734]
[2019-01-12] MEDS ORDERED: CHOLECALCIFEROL 1,000 UNIT TABLET PO SCH (10:00)
[2019-01-12] MEDS ORDERED: MAGNESIUM OXIDE 400 MG TABLET PO SCH (10:00)
[2019-01-12] MEDS ORDERED: LOSARTAN POTASSIUM 25 MG TABLET PO SCH (10:00)
[2019-01-12] MEDS ORDERED: DULOXETINE HCL 30 MG CAPSULE.DR PO SCH (10:00)
[2019-01-12] MEDS ORDERED: ASPIRIN 81 MG TABEC PO SCH (10:00)
== END 2019-01-12 10:35 | disposition home or self-care (01) ==
LOC: ER 12:05 → MEDSURG 14:16
PROVIDERS: ADMIT Internal Medicine; ATTEND Internal Medicine
DX: R55 Syncope and collapse (principal); R53.1 Weakness; I10 Essential (primary) hypertension; E11.9 Type 2 diabetes mellitus without complications; K21.9 Gastro-esophageal reflux disease without esophagitis; N40.0 Benign prostatic hyperplasia without lower urinary tract symptoms; Z87.891 Personal history of nicotine dependence; Z85.820 Personal history of malignant melanoma of skin
CPT/HCPCS: 85025; 85730; 85610; 80053 ×2; 84484 ×2; 70450; 93005 ×2; 93010; G0378 ×2; 99220; 99285

== ENCOUNTER 2019-02-18 05:36 | Day surgery (SDC) | payer MEDICARE ==
[2019-02-18] MEDS ORDERED: PROPOFOL 10 MG/ML VIAL IV ONE (05:37)
[2019-02-18] MEDS ORDERED: LIDOCAINE 2% MDV (20MG/ML) 20ML VIAL IV ONE (05:37)
[2019-02-18] MEDS ORDERED: MIDAZOLAM HCL 2MG/2ML VIAL IV ONE (05:37)
[2019-02-18] MEDS ORDERED: FENTANYL PF 100MCG/2ML VIAL IV ONE (05:37)
[2019-02-18] MEDS ORDERED: RINGERS SOLUTION,LACTATED 1,000 ML IV ONE (06:00)
[2019-02-18] MEDS ORDERED: BUPIVACAINE 0.5% W/EPI MPF 30 ML VIAL SQ ONE (07:26)
[2019-02-18] MEDS ORDERED: BUPIVACAINE 0.25% PF (2.5MG/ML) 10ML VIAL IM ONE (07:26)
[2019-02-18] MEDS ORDERED: LIDOCAINE 1% W/EPI 1:200,000 MPF 30ML SQ ONE (07:26)
[2019-02-18] MEDS ORDERED: DEXAMETHASONE PRESERVATIVE FREE 10MG/ML VIAL SQ ONE (07:27)
--- NOTE | 2019-02-19 13:51 | Operative Note ---
DATE OF SURGERY: 02/18/2019 PREOPERATIVE DIAGNOSIS: Lumbar spondylosis without myelopathy, ICD10 code M47.816. OPERATION: Fluoroscopic-guided infiltration of block bilateral lumbar facets 3- 4, 4-5, 5-1. ANESTHESIA: Local with sedation. ANESTHESIA PROVIDER: Nico Mann INDICATION: This patient presents with primary back pain. Examination shows tenderness at the lumbar spine. Range of motion does cause pain in the low back with extension. Diagnostic studies showed diffuse multilevel spondylosis. PROCEDURE: Intravenous line, vital sign monitoring, IV sedation, prepped and draped in sterile technique. Under imaging, facets levels lumbar spine in the area of pain were identified and marked at 3-4, 4-5, 5-1 bilaterally. Each one of these points in the skin infiltrated. A 22-gauge 3-1/2 inch needle into the facet with 1 mL of 0.5% Marcaine and dexamethasone injected. This was repeated bilaterally. Areas cleaned. Topical antibiotic and sterile dressing applied. Will monitor and evaluate. MTDD
== END 2019-02-18 08:15 | disposition home or self-care (01) ==
LOC: SUR 05:36
PROVIDERS: ATTEND Pain Medicine Interventional Pain Medicine
DX: M47.816 Spondylosis without myelopathy or radiculopathy, lumbar region (principal); I10 Essential (primary) hypertension; E78.00 Pure hypercholesterolemia, unspecified; E11.9 Type 2 diabetes mellitus without complications; K21.9 Gastro-esophageal reflux disease without esophagitis; G47.33 Obstructive sleep apnea (adult) (pediatric); G97.1 Other reaction to spinal and lumbar puncture
CPT/HCPCS: 36416; 82948; J7120